=== PATIENT | female | born 1950 | race Caucasian/White ===

== ENCOUNTER 2017-12-25 13:48 | Emergency (ER) | payer MEDICARE, OTHER ==
[~2017-12-25] VITALS: Ht 160 cm; Wt 95.3 kg
[2017-12-25] MEDS ORDERED: cefTRIAXone SOD 1,000 MG VL IM ONE (16:15)
[2017-12-25] MEDS ORDERED: ACETAMINOPHEN 500 MG TAB PO ONE (16:15)
[2017-12-25 16:51] VITALS: BP 111/60
== END 2017-12-25 16:56 | disposition home or self-care (01) ==
LOC: ER 13:48
DX: J20.9 Acute bronchitis, unspecified (principal); J02.9 Acute pharyngitis, unspecified; F17.210 Nicotine dependence, cigarettes, uncomplicated
CPT/HCPCS: 71046; 81002; 96372; 99284; J0696